=== PATIENT | female | born 1940 | race Caucasian/White ===

== ENCOUNTER 2016-05-16 10:25 | Outpatient (CLI) ==
[2015-01-24 15:17] VITALS: BMI 32.4
[2016-05-16 11:12] LABS: HEMATOCRIT 39.8 % (37.0-47.0); HEMOGLOBIN 13.3 g/dl (12.0-16.0); MEAN CORPUSCULAR HEMOGLOBIN 30.9 pg (27.0-31.0); MEAN CORPUSCULAR HGB CONC 33.4 (31.8-35.4); MEAN CORPUSCULAR VOLUME 92.3 fl (81.0-99.0); RED BLOOD COUNT 4.31 10^6/ul (4.20-5.40); WHITE BLOOD COUNT 7.27 K/ul (4.6-10.2)
[2016-05-16 11:21] LABS: BILIRUBIN,URINE Negative (NEGATIVE); KETONES,URINE Negative (NEGATIVE); LEUKOCYTE ESTERASE ,URINE 1+ (NEGATIVE); NITRITE,URINE Negative (NEGATIVE); PROTEIN,URINE 1+ (NEGATIVE); URINE, BLOOD 3+ (NEGATIVE)
[2016-05-16 11:25] LABS: ADD URINE MICROSCOPIC YES
[2016-05-16 11:36] LABS: BACTERIA,URINE 2+ (NOT PRESENT)
[2016-05-16 12:03] LABS: ALBUMIN 3.2 g/dL (3.4-5.0); ALBUMIN/GLOBULIN RATIO 0.94; ANION GAP 13.6; BILIRUBIN,TOTAL 0.93 mg/dL (0.00-1.20); BUN/CREATININE RATIO 10.28; CALCIUM 9.4 mg/dL (8.2-10.2); CREATININE 3.21 mg/dL (0.60-1.30); MAGNESIUM 1.9 mg/dL (1.7-2.2); PHOSPHORUS 3.8 mg/dL (2.8-4.1); POTASSIUM 4.6 mmol/L (3.5-5.10); TOTAL PROTEIN 6.6 g/dL (5.8-8.1); URIC ACID 8.7 mg/dL (2.4-6.0)
[2016-05-17 07:49] LABS: URINE CREATINE 154.9 mg/dL (Not Estab.)
== END 2016-05-16 10:26 | disposition home or self-care (01) ==
LOC: LAB 10:25
PROVIDERS: ATTEND Nurse Practitioner
DX: N18.4 Chronic kidney disease, stage 4 (severe) (principal); E55.9 Vitamin D deficiency, unspecified
CPT/HCPCS: 36415; 80053; 81001; 82306; 82570; 83735; 83970; 84100; 84156; 84550; 85027

== ENCOUNTER → 2016-05-17 | Outpatient (CLI) ==
[2015-01-24 15:17] VITALS: BMI 32.4
== END ==
LOC: AMBL 09:20
PROVIDERS: ATTEND Emergency Medicine
DX: R26.2 Difficulty in walking, not elsewhere classified (principal); R53.1 Weakness; R00.1 Bradycardia, unspecified; I49.1 Atrial premature depolarization; Z86.73 Personal history of transient ischemic attack (TIA), and cerebral infarction without residual deficits

== ENCOUNTER 2016-12-08 11:38 | Outpatient (CLI) ==
[2015-01-24 15:17] VITALS: BMI 32.4
[2016-12-08 12:24] LABS: BUN/CREATININE RATIO 9.2; CALCIUM 9.9 mg/dL (8.2-10.2); CREATININE 3.15 mg/dL (0.60-1.30)
== END 2016-12-08 11:39 | disposition home or self-care (01) ==
LOC: LAB 11:38
PROVIDERS: ATTEND Nurse Practitioner
DX: N18.4 Chronic kidney disease, stage 4 (severe) (principal)
CPT/HCPCS: 36415; 80048

== ENCOUNTER 2016-12-18 12:31 | Outpatient (CLI) ==
[2015-01-24 15:17] VITALS: BMI 32.4
[2016-12-18 13:23] LABS: BUN/CREATININE RATIO 8.58; CREATININE 2.68 mg/dL (0.60-1.30)
== END 2016-12-18 12:32 | disposition home or self-care (01) ==
LOC: LAB 12:31
PROVIDERS: ATTEND Nurse Practitioner
DX: N18.4 Chronic kidney disease, stage 4 (severe) (principal)
CPT/HCPCS: 36415; 80048

== ENCOUNTER 2017-01-27 08:48 | Outpatient (CLI) ==
[2015-01-24 15:17] VITALS: BMI 32.4
[2017-01-27 09:48] LABS: ALBUMIN 3.2 g/dL (3.4-5.0); ANION GAP 15.4; BUN/CREATININE RATIO 9.7; CALCIUM 9.8 mg/dL (8.2-10.2); CREATININE 3.09 mg/dL (0.60-1.30); PHOSPHORUS 3.9 mg/dL (2.8-4.1); POTASSIUM 4.4 mmol/L (3.5-5.10)
== END 2017-01-27 08:49 | disposition home or self-care (01) ==
LOC: LAB 08:48
PROVIDERS: ATTEND Nurse Practitioner
DX: N18.4 Chronic kidney disease, stage 4 (severe) (principal)
CPT/HCPCS: 36415; 80069

== ENCOUNTER 2017-02-03 08:32 | Outpatient (CLI) ==
[2015-01-24 15:17] VITALS: BMI 32.4
[2017-02-03 08:59] LABS: HEMATOCRIT 34.4 % (37.0-47.0); HEMOGLOBIN 11.2 g/dl (12.0-16.0); MEAN CORPUSCULAR HEMOGLOBIN 29.4 pg (27.0-31.0); MEAN CORPUSCULAR HGB CONC 32.6 (31.8-35.4); MEAN CORPUSCULAR VOLUME 90.3 fl (81.0-99.0); RED BLOOD COUNT 3.81 10^6/ul (4.20-5.40); WHITE BLOOD COUNT 5.77 K/ul (4.6-10.2)
[2017-02-03 09:08] LABS: BILIRUBIN,URINE Negative (NEGATIVE); KETONES,URINE Negative (NEGATIVE); LEUKOCYTE ESTERASE ,URINE 1+ (NEGATIVE); NITRITE,URINE Positive (NEGATIVE); PROTEIN,URINE Negative (NEGATIVE); URINE, BLOOD 3+ (NEGATIVE)
[2017-02-03 09:11] LABS: ADD URINE MICROSCOPIC YES
[2017-02-03 09:13] LABS: BACTERIA,URINE 2+ (NOT PRESENT)
[2017-02-03 09:15] LABS: ALBUMIN 3.2 g/dL (3.4-5.0); ANION GAP 13.4; BUN/CREATININE RATIO 9.46; CALCIUM 9.8 mg/dL (8.2-10.2); CREATININE 3.17 mg/dL (0.60-1.30); MAGNESIUM 1.9 mg/dL (1.7-2.2); PHOSPHORUS 3.7 mg/dL (2.8-4.1); POTASSIUM 4.4 mmol/L (3.5-5.10); URIC ACID 7.1 mg/dL (2.4-6.0)
[2017-02-04 09:37] LABS: URINE CREATININE 184.9 mg/dL (Not Estab.); URINE TOTAL PROTEIN 23.7 mg/dL (Not Estab.)
== END 2017-02-03 08:33 | disposition home or self-care (01) ==
LOC: LAB 08:32
PROVIDERS: ATTEND Nurse Practitioner
DX: N18.4 Chronic kidney disease, stage 4 (severe) (principal)
CPT/HCPCS: 36415; 80069; 81001; 82570; 83735; 84156; 84550; 85027

== ENCOUNTER 2017-03-10 11:56 | Outpatient (CLI) ==
[2015-01-24 15:17] VITALS: BMI 32.4
== END 2017-03-10 11:57 | disposition short-term general hospital (02) ==
LOC: AMBL 11:56
PROVIDERS: ATTEND Emergency Medicine
DX: S06.9X9A Unspecified intracranial injury with loss of consciousness of unspecified duration, initial encounter (principal); S01.90XA Unspecified open wound of unspecified part of head, initial encounter; R56.9 Unspecified convulsions; W19.XXXA Unspecified fall, initial encounter

== ENCOUNTER 2017-04-27 11:32 | Outpatient (CLI) ==
[2015-01-24 15:17] VITALS: BMI 32.4
== END 2017-04-27 11:33 | disposition home or self-care (01) ==
LOC: LAB 11:32
PROVIDERS: ATTEND Nurse Practitioner Family
DX: N18.4 Chronic kidney disease, stage 4 (severe) (principal); I10 Essential (primary) hypertension
CPT/HCPCS: 36415; 80053; 81001; 82306; 82570; 83735; 83970; 84100; 84156; 84550; 85025

== ENCOUNTER 2017-06-30 09:18 | Outpatient (CLI) ==
[2015-01-24 15:17] VITALS: BMI 32.4
== END 2017-06-30 09:19 | disposition home or self-care (01) ==
LOC: LAB 09:18
PROVIDERS: ATTEND Nurse Practitioner
DX: N18.4 Chronic kidney disease, stage 4 (severe) (principal)
CPT/HCPCS: 36415; 80053; 81001; 82306; 82570; 83735; 83970; 84100; 84156; 84550; 85027

== ENCOUNTER 2017-07-27 21:36 | Outpatient (CLI) ==
[2015-01-24 15:17] VITALS: BMI 32.4
== END 2017-07-27 21:37 | disposition left against medical advice (07) ==
LOC: AMBL 21:36
PROVIDERS: ATTEND Internal Medicine Geriatric Medicine
DX: Z74.2 Need for assistance at home and no other household member able to render care (principal); W19.XXXA Unspecified fall, initial encounter

== ENCOUNTER 2017-08-04 08:45 | Outpatient (CLI) | payer OTHER ==
[2015-01-24 15:17] VITALS: BMI 32.4
== END 2017-08-04 08:46 | disposition home or self-care (01) ==
LOC: LAB 08:45
PROVIDERS: ATTEND Physician Assistant Medical
DX: D64.9 Anemia, unspecified (principal)
CPT/HCPCS: 36415; 82728; 83540; 83550

== ENCOUNTER 2017-08-06 09:04 | Outpatient (CLI) | payer OTHER ==
[2015-01-24 15:17] VITALS: BMI 32.4
== END 2017-08-06 09:05 | disposition home or self-care (01) ==
LOC: LAB 09:04
PROVIDERS: ATTEND Physician Assistant Medical
DX: D64.9 Anemia, unspecified (principal)
CPT/HCPCS: 36415; 82272

== ENCOUNTER 2017-08-10 08:36 | Outpatient (CLI) ==
[2015-01-24 15:17] VITALS: BMI 32.4
== END 2017-08-10 08:37 | disposition home or self-care (01) ==
LOC: LAB 08:36
PROVIDERS: ATTEND Family Medicine
DX: N18.2 Chronic kidney disease, stage 2 (mild) (principal); D63.1 Anemia in chronic kidney disease; E78.5 Hyperlipidemia, unspecified; M10.9 Gout, unspecified; R56.9 Unspecified convulsions
CPT/HCPCS: 36415; 80053; 80061; 80185; 84550; 85025

== ENCOUNTER 2017-10-09 10:33 | Outpatient (CLI) ==
[2015-01-24 15:17] VITALS: BMI 32.4
== END 2017-10-09 10:34 | disposition home or self-care (01) ==
LOC: LAB 10:33
PROVIDERS: ATTEND Nurse Practitioner
DX: N18.4 Chronic kidney disease, stage 4 (severe) (principal)
CPT/HCPCS: 36415; 80053; 81001; 82570; 83735; 84100; 84156; 84550; 85025; 85027; 87086; 87186

== ENCOUNTER 2017-11-12 08:35 | Outpatient (CLI) ==
[2015-01-24 15:17] VITALS: BMI 32.4
== END 2017-11-12 08:36 | disposition home or self-care (01) ==
LOC: LAB 08:35
PROVIDERS: ATTEND Nurse Practitioner
DX: N18.4 Chronic kidney disease, stage 4 (severe) (principal); E55.9 Vitamin D deficiency, unspecified
CPT/HCPCS: 36415; 80053; 81001; 82306; 83735; 83970; 84100; 84550; 85027

== ENCOUNTER 2018-01-06 08:32 | Outpatient (CLI) | payer OTHER ==
[2015-01-24 15:17] VITALS: BMI 32.4
== END 2018-01-06 08:33 | disposition home or self-care (01) ==
LOC: LAB 08:32
PROVIDERS: ATTEND Nurse Practitioner
DX: N18.4 Chronic kidney disease, stage 4 (severe) (principal); E55.9 Vitamin D deficiency, unspecified
CPT/HCPCS: 36415; 80053; 81001; 82306; 82570; 83735; 83970; 84100; 84156; 84550; 85027

== ENCOUNTER 2018-04-06 09:04 | Outpatient (CLI) | payer OTHER ==
[2015-01-24 15:17] VITALS: BMI 32.4
== END 2018-04-06 09:05 | disposition home or self-care (01) ==
LOC: LAB 09:04
PROVIDERS: ATTEND Nurse Practitioner
DX: D50.0 Iron deficiency anemia secondary to blood loss (chronic) (principal); N18.4 Chronic kidney disease, stage 4 (severe); E55.9 Vitamin D deficiency, unspecified
CPT/HCPCS: 36415; 80053; 81001; 82306; 82570; 83735; 83970; 84100; 84156; 84550; 85027

== ENCOUNTER 2018-05-18 08:30 | Outpatient (CLI) | payer OTHER ==
[2015-01-24 15:17] VITALS: BMI 32.4
== END 2018-05-18 08:31 | disposition home or self-care (01) ==
LOC: LAB 08:30
PROVIDERS: ATTEND Family Medicine
DX: N39.0 Urinary tract infection, site not specified (principal); R31.9 Hematuria, unspecified; E78.5 Hyperlipidemia, unspecified
CPT/HCPCS: 36415; 80053; 80061; 85025; 87086

== ENCOUNTER 2018-07-05 08:51 | Outpatient (CLI) | payer OTHER ==
[2015-01-24 15:17] VITALS: BMI 32.4
== END 2018-07-05 08:52 | disposition home or self-care (01) ==
LOC: LAB 08:51
PROVIDERS: ATTEND Nurse Practitioner
DX: N18.4 Chronic kidney disease, stage 4 (severe) (principal)
CPT/HCPCS: 36415; 80053; 81001; 82570; 83735; 84100; 84156; 84550; 85025